=== PATIENT | female | born 1980 | race Caucasian/White ===

== ENCOUNTER 2024-07-17 18:43 | Emergency (ER) | payer SELFPAY ==
[2024-07-17 18:43] VITALS: BP 201/106; PULSE 96; RESP 17; TEMP 36.1; O2SAT 98; BMI 41.8
[2024-07-17 19:00] LABS: Absolute Lymphocyte Count 2.82 X10^3/uL (0.83-4.51); Absolute Neutrophil Count 5.7 X10^3/uL (2.0-7.7); Basophil# 0.04 X10^3/uL; Basophil% 0.4 % (0-1); Eosinophil# 0.14 X10^3/uL; Eosinophils% 1.5 % (0-5); Hematocrit 45.5 % (37-47); Hemoglobin 15.2 g/dL (12.0-15.0); Lymphocyte # 2.82 X10^3/ul (0.83-4.51); Lymphocyte % 29.7 % (19-41); Mean Corp Hgb Conc 33.4 g/dL (32-36); Mean Corpuscular Hgb 30.5 pg (27.0-32.0); Mean Corpuscular Volume 91.2 fL (81-99); Monocyte# 0.73 X10^3/uL; Monocyte% 7.7 % (0-10); NRBC Flagged by Analyzer 0 % (0-5); Neutrophil # 5.73 X10^3/uL (2.7-7.7); Neutrophil % 60.4 % (47-70); Platelet Count 260 K/mm3 (150-450); RBC Distribution Width CV 11.9 % (11.6-14.6); RBC Distribution Width SD 39.2 fl (35.1-43.9); Red Blood Count 4.99 M/mm3 (4.2-5.4); White Blood Count 9.5 K/mm3 (4.4-11.0)
[2024-07-17 19:23] LABS: ALB/GLOB Ratio 0.9 RATIO (0.9-2.4); AST(SGOT) 11 U/L (15-37); Alanine Aminotransfer ALT/SGPT 22 U/L (13-56); Albumin, Serum 3.7 g/dL (3.2-5.0); Alkaline Phosphatase 79 U/L (45-117); Anion Gap 7 (5-15); BUN 14 mg/dL (7-18); BUN/Creat Ratio 21.5 RATIO (10-20); Calcium,Total 9.7 mg/dL (8.5-10.1); Chloride 106 mmol/L (98-107); Creatinine, Serum 0.65 mg/dL (0.55-1.02); EST Glomerular Filtration Rate 106 mL/min (>60); Est Glom Filt Rate - Afr Amer 128 mL/min (>60); Globulin 4.3 g/dL (2.2-4.2); Glucose 94 mg/dL (74-106); Potassium 3.9 mmol/L (3.5-5.1); Sodium Level 138 mmol/L (136-145)
[2024-07-17 19:26] LABS: Mucous, Urine 0 SEEN /hpf (<or=2+); Red Blood Cells-Urine 0 SEEN /hpf (0-5); Squamous Epithelial Cells - UA 0 SEEN /hpf (5-10); White Blood Cells 0 SEEN /hpf (0-5)
[2024-07-17 19:32] LABS: Color, Urine Straw (Yellow); Glucose, Dipstick Normal (Normal); Ketone-Dipstick Negative (Negative); Leukocyte Esterase-Dipstick Negative /ul (Negative); Nitrite-Dipstick Negative (Negative); Occult Blood-Urine 25 /ul (Negative); Protein-Dipstick Negative (Negative); Specific Gravity, Urine 1.005 (1.002-1.030); Urine Bilirubin Dipstick Negative (Negative); Urine Clarity Clear (Clear); Urine Urobilinogen Normal (Normal)
[2024-07-17 19:44] LABS: Bacteria RARE /hpf (None Seen)
[2024-07-17 20:43] VITALS: BP 149/90; PULSE 86; RESP 16; O2SAT 98
--- NOTE | 2024-07-17 21:19 | CT_ITS ---
INDICATION: FLANK PAIN EXAMINATION: CT ABDOMEN AND PELVIS WITHOUT CONTRAST - CT Abdomen And Pelvis W/O Contrast Injection TECHNIQUE: Helically acquired images were obtained of the abdomen and pelvis without oral or IV contrast. The protocol utilizes one or more of the following dose reduction techniques: automated exposure control, adjustment of mA and/or kV according to patient size,and/or use of iterative reconstruction technique. IV Contrast dosage and agent: None. Oral contrast: None. RADIATION DOSAGE (If Supplied By Facility): CTDIvol = ( 20.43 ) mGy, DLP = ( 1077.22 ) mGycm COMPARISON: No relevant prior comparison study available FINDINGS: LOWER CHEST: Lung bases are clear. No cardiomegaly or pericardial effusion. LIVER: Homogeneous. No focal mass. No intra- or extrahepatic biliary ductal dilation. PANCREAS: No focal cystic or solid mass. SPLEEN: Normal size without focal cystic or solid mass. ADRENAL GLANDS: No nodules. KIDNEYS AND URETERS: Bilateral nonobstructive kidney stones. The largest measures 8 mm. No hydronephrosis. PERITONEUM: No ascites or free air. No other fluid collection. BOWEL: No evidence of acute appendicitis. No stomach or bowel distension. No focal inflammatory change. LYMPH NODES: No enlarged mesenteric or retroperitoneal lymph nodes. VESSELS: Aorta is non-dilated. URINARY BLADDER: Unremarkable. REPRODUCTIVE ORGANS: No pelvic masses. ABDOMINAL WALL: No discrete abdominal or pelvic wall hernia. BONES: No lytic or blastic abnormality. CT/Abdomen/Pelvis without Cont IMPRESSION: Bilateral nonobstructive kidney stones. The largest measures 8 mm. Electronically Signed: Eber Mcmahon MD at 23:27 EDT ,
[2024-07-17] MEDS: Ondansetron 4 MG/2 ML Vial IV (21:31)
[2024-07-17] MEDS: Ketorolac 30 MG/ML Syringe IV (21:31)
[2024-07-17 22:00] VITALS: BP 128/88; PULSE 86; RESP 18; O2SAT 96
--- NOTE | 2024-07-17 23:44 | EX.ED.DYSGE1 ---
HPI History of Present Illness Chief Complaint: Flank Pain Narrative Narrative: Patient is a 44-year-old female with past medical history of hypertension, previous kidney stones who presents to the emergency department the chief complaint of kidney stone. Patient states that for the past few days she has noted that she feels like she has a kidney stone on the right side. States that she has had them in the past and has had to have them woken up. Patient currently rates her pain a 7 out of 10 on exam. She states that she tried to drink multiple bottles of water and making herself urinate prior to arrival in hopes that kidney stone will pass on its own. Patient denies any fevers, painful urination, increased frequency of urinating. [facility] Medical History Kidney stones Hemorrhoids HTN (hypertension) Home Medications ?Medication ?Instructions ?Recorded ?Last Taken ?Type ketorolac 10 mg tablet 10 mg PO Q6H PRN pain 5 days #20 07/17/24 Unknown Rx tabs medroxyprogesterone 150 mg/mL 600 mg IM .[id number] control 07/17/24 Unknown History intramuscular suspension (Depo-Provera) melatonin 10 mg capsule 10 mg PO QHS PRN sleep 07/17/24 Unknown History ondansetron 4 mg disintegrating 4 mg PO Q6H PRN nausea and 07/17/24 Unknown Rx tablet vomiting #20 tabs oxycodone-acetaminophen 5 mg-325 1 tab PO Q6H PRN pain 3 days #12 07/17/24 Unknown Rx mg tablet (Endocet) tabs tamsulosin 0.4 mg capsule (Flomax) 0.4 mg PO DAILY #30 caps 07/17/24 Unknown Rx Allergy/AdvReac Type Severity Reaction Status Date / Time No Known Allergies Allergy Verified 07/17/24 18:43 Surgical History H/O tubal ligation Hx of cholecystectomy Social History Smoking Status: Current every day smoker tobacco type: cigarettes alcohol intake: never ROS ROS ED ROS Narrative Constitutional: Denies any fevers, chills, headaches Cardiovascular: Denies chest pain or palpitations Respiratory: Denies coughing wheezing shortness of breath Abdomen: Denies abdominal pain nausea vomit diarrhea : Denies any painful urination, hematuria, polyuria Neurological: Denies numbness, weakness, tingling Musculoskeletal: Complains of right-sided back pain as noted above Skin: Denies rashes or lesions EXAM Physical Exam Narrative Exam Narrative: General: Patient was lying in bed did appear to be uncomfortable secondary to her back pain Head: Atraumatic, normocephalic Eyes: PERRL bilaterally, EOMI bilateral, no conjunctival injection noted Neck: Soft, supple, trach midline Cardiovascular: Regular rate and rhythm no murmurs gallops rubs noted Respiratory: Clear to auscultation bilaterally no rales rhonchi wheeze noted Abdomen: Soft, nondistended, nontender to palpation, bowel sounds present x 4 Musculoskeletal: Patient is some tenderness palpation of the right quadratus lumborum region, no midline tense palpation thoracolumbar spine Extremities: +5/5 strength noted in the bilateral upper and lower extremities, no pedal edema no exam, radial pulses +2/4 in the bilateral upper extremities Neurological: Patient was following commands knew that she was at [facility] year is 2023 Skin: Warm, dry, intact no rashes or lesions noted Const Vital Signs: 07/17/24 18:43 07/17/24 20:43 07/17/24 22:00 Temperature 97 F L Temperature Source Temporal Pulse Rate 96 86 86 Respiratory Rate 17 16 18 Blood Pressure 201/106 H 149/90 H 128/88 H Blood Pressure Mean 137 109 101 Pulse Ox 98 98 96 Oxygen Delivery Method Room Air Room Air Room Air MDM [facility] Narrative Medical decision making narrative: Patient is a 44-year-old female who presented to the emergency department the chief complaint of urolithiasis. Patient will have workup performed here on the differential diagnose includes but not limited to UTI, pyelonephritis, urolithiasis, AAA. Once workup is obtained reviewed she will be reevaluated. Patient will be given IV fluids, Toradol. Patient's CBC was reviewed showed no evidence of leukocytosis white blood count normal 9.5, hemoglobin stable 15.2, platelet count normal at 260. Patient sodium normal at 138, potassium normal 3.9, creatinine normal at 0.65. Patient's AST and ALT were 11 and 22 respectively . Patient's urinalysis did not reveal any evidence of infection there was small amount of blood noted. Patient CT abdomen pelvis without IV contrast was reviewed and showed bilateral nonobstructing kidney stones the largest measuring 8 mm. I did discuss results with the patient and the patient would like to go home at this point time I did offer her admission/transfer as there is no on-call urology here today as the stone is noted be 8 mm. She is requesting pain medication to go home with and urology follow-up. She was encouraged return with fevers, intractable nausea vomiting worsening pain or any other concerns. Her and her significant other are agreeable to this plan. Patient was discharged home in stable condition with all question concerns answered. Lab Data Labs: Laboratory Results - last 24 hr 07/17/24 07/17/24 18:50 19:21 WBC 9.5 RBC 4.99 Hgb 15.2 H Hct 45.5 MCV 91.2 MCH 30.5 MCHC 33.4 RDW Std Deviation 39.2 RDW Coeff of Alanna 11.9 Plt Count 260 MPV 10.0 Immature Gran % (Auto) 0.300 Neut % (Auto) 60.4 Lymph % (Auto) 29.7 Graham % (Auto) 7.7 Eos % (Auto) 1.5 Baso % (Auto) 0.4 Absolute Neuts (auto) 5.7 Absolute Lymphs (auto) 2.82 Nucleated RBC % 0 Sodium 138 Potassium 3.9 Chloride 106 Carbon Dioxide 25.0 Anion Gap 7 BUN 14 Creatinine 0.65 Estim Creat Clear Calc 122.60 Est GFR (MDRD) Af Amer 128 Est GFR (MDRD) Non-Af 106 BUN/Creatinine Ratio 21.5 H Glucose 94 Calcium 9.7 Total Bilirubin 0.20 AST 11 L ALT 22 Alkaline Phosphatase 79 Total Protein 8.0 Albumin 3.7 Globulin 4.3 H Albumin/Globulin Ratio 0.9 Urine Color Straw Urine Clarity Clear Urine pH 7.0 Ur Specific Petroleum 1.005 Urine Protein Negative Urine Glucose (UA) Normal Urine Ketones Negative Urine Occult Blood 25 H Urine Nitrite Negative Urine Bilirubin Negative Urine Urobilinogen Normal Ur Leukocyte Esterase Negative Urine RBC 0 SEEN Urine WBC 0 SEEN Ur Squamous Epith Cells 0 SEEN Urine Bacteria RARE Urine Mucus 0 SEEN Radiography Diagnostic Testing: Clinical Impression(s) from Imaging Studies Abdomen/Pelvis CT 07/17/24 21:19 IMPRESSION: Bilateral nonobstructive kidney stones. The largest measures 8 mm. Electronically Signed: Eber Mcmahon MD at 23:27 EDT , Discharge Plan Triage Chief Complaint: Flank Pain ED Provider: Christo Pulido Dx/Rx/DC Orders Clinical Impression: Urolithiasis Prescriptions: New ketorolac 10 mg tablet 10 mg PO Q6H PRN (Reason: pain) 5 Days Qty: 20 0RF Rx Instructions: maximum total duration of 5 days from all oral, intranasal, or parenteral formulations ondansetron 4 mg tablet,disintegrating 4 mg PO Q6H PRN (Reason: nausea and vomiting) Qty: 20 0RF oxycodone-acetaminophen [Endocet] 5-325 mg tablet 1 tab PO Q6H PRN (Reason: pain) 3 Days Qty: 12 0RF tamsulosin [Flomax] 0.4 mg capsule 0.4 mg PO DAILY Qty: 30 0RF No Action melatonin 10 mg capsule 10 mg PO QHS PRN (Reason: sleep) Patient Comments: pt reports taking 10-20mg per night medroxyprogesterone [Depo-Provera] 150 mg/mL suspension 600 mg IM .[id number] Patient Comments: unsure of dosage Primary Care Provider: Connie Madrid Referrals: Connie Madrid, ZIPPER TRIMMER-C [Primary Care Provider] - Christopher Mrar MD [Med Staff - Active Staff] - Activity Restrictions/Additional Instructions: Follow-up with your urologist that you are referred to. Return for fevers, worsening pain, intractable nausea vomiting not tolerating oral intake or any other concerns. Take prescriptions as prescribed do not use NSAIDs on top with Toradol/ketorolac that you were prescribed. Do not operate anything under the influence of the narcotic. Print Language: Solomon Islander Disposition Disposition: Home, Self Care
== END 2024-07-17 23:57 | disposition home or self-care (01) ==
PROVIDERS: Emergency Provider Emergency Medicine; PCP Nurse Practitioner Family; Visit Provider Emergency Medicine
DX: N20.9 Urinary calculus, unspecified (principal); I10 Essential (primary) hypertension; Z98.51 Tubal ligation status; Z90.49 Acquired absence of other specified parts of digestive tract; F17.210 Nicotine dependence, cigarettes, uncomplicated
CPT/HCPCS: 74176; 80053; 81001; 85025; 96374; 96375; 99282; A4216; J2405

== ENCOUNTER 2024-07-20 09:06 | Emergency (ER) | payer SELFPAY ==
[2024-07-20 09:07] VITALS: BP 161/97; PULSE 105; RESP 22; TEMP 36.1; O2SAT 100; BMI 41.4
[2024-07-20] MEDS: Ketorolac 15 MG/ML Vial IV (09:31)
[2024-07-20] MEDS: Ondansetron 4 MG/2 ML Vial IV (09:31)
[2024-07-20] MEDS: 0.9% Normal Saline (1000mL) 1,000 ML 250 ML IV (09:33)
[2024-07-20] MEDS: HYDROmorphone 0.5 MG/0.5 ML SYRINGE IV (09:33)
[2024-07-20 09:39] LABS: Absolute Neutrophil Count 6.7 X10^3/uL (2.0-7.7); Basophil# 0.02 X10^3/uL; Basophil% 0.2 % (0-1); Eosinophil# 0.04 X10^3/uL; Eosinophils% 0.4 % (0-5); Hematocrit 45.7 % (37-47); Hemoglobin 15.3 g/dL (12.0-15.0); Lymphocyte % 17.9 % (19-41); Mean Corp Hgb Conc 33.5 g/dL (32-36); Mean Corpuscular Hgb 30.4 pg (27.0-32.0); Mean Corpuscular Volume 90.9 fL (81-99); Mean Platelet Vol. 10.3 fl (6.2-12.0); Monocyte% 5.6 % (0-10); NRBC Flagged by Analyzer 0 % (0-5); Neutrophil # 6.74 X10^3/uL (2.7-7.7); Neutrophil % 75.5 % (47-70); Platelet Count 279 K/mm3 (150-450); RBC Distribution Width CV 11.9 % (11.6-14.6); RBC Distribution Width SD 39.6 fl (35.1-43.9); Red Blood Count 5.03 M/mm3 (4.2-5.4); White Blood Count 8.9 K/mm3 (4.4-11.0)
--- NOTE | 2024-07-20 09:40 | RAD_ITS ---
STUDY: X-RAY - ABDOMEN/PELVIS REASON FOR EXAM: Female, 44 years old. Right flank pain, known kidney stone TECHNIQUE: Single AP view of the abdomen / pelvis. COMPARISON: None. FINDINGS: There is a moderate amount of colonic fecal material. There is a 6.5 mm calcification in the medial right midabdomen adjacent to the transverse process of the L3 vertebrae on the right side suggestive of a calculus in the proximal portion of the right ureter. There are calcified phleboliths in the pelvis. Normal visualized osseous structures. RAD/Abdomen Single View IMPRESSION: Findings suggestive of a 6.5 mm calculus in the proximal portion of the right ureter. Electronically Signed: Moose Tyson MD at 9:55 EDT ,
[2024-07-20 09:49] LABS: Anion Gap 5 (5-15); BUN 9 mg/dL (7-18); BUN/Creat Ratio 12.3 RATIO (10-20); Calcium,Total 9.3 mg/dL (8.5-10.1); Chloride 105 mmol/L (98-107); Creatinine, Serum 0.73 mg/dL (0.55-1.02); EST Glomerular Filtration Rate 93 mL/min (>60); Est Glom Filt Rate - Afr Amer 112 mL/min (>60); Estimated Creatinine Clearance 108.57 ml/min; Glucose 96 mg/dL (74-106); Sodium Level 135 mmol/L (136-145)
[2024-07-20 10:06] VITALS: BP 151/84; PULSE 99; RESP 18; O2SAT 99
[2024-07-20] MEDS: HYDROmorphone 1 MG/ML Syringe 0.5 MG IV (10:06)
[2024-07-20 10:12] LABS: Bacteria 0 SEEN /hpf (None Seen); Mucous, Urine 0 SEEN /hpf (<or=2+); Squamous Epithelial Cells - UA 0 SEEN /hpf (5-10); White Blood Cells 0 SEEN /hpf (0-5)
--- NOTE | 2024-07-20 10:24 | EX.ED.DYSGE1 ---
HPI History of Present Illness Chief Complaint: Flank Pain Informant: patient Narrative Narrative: Patient is a 44-year-old female with history of multiple kidney stones requiring instrumentation and stenting presenting with worsening right flank pain. Patient was actually seen in our ER earlier this week (3 days ago) where she was diagnosed with bilateral nonobstructive kidney stones the largest measuring 8 mm. There is no hydronephrosis at this time. She states she was doing well but then suddenly developed severe pain today. She took oral Toradol at 4 AM and half of an oxycodone at 11 PM last night was not feeling that her pain under control. She also voices frustration and concern as she does not currently have insurance. Notes that she has passed stones on her own before as well. No other complaints or concerns at this time. Denies any fever or chills. Denies any change in urine color. As some nauseousness with the pain but denies any vomiting. Most recent stent was 2 years ago at [facility]. [facility] Medical History Kidney stones Hemorrhoids HTN (hypertension) Home Medications ?Medication ?Instructions ?Recorded ?Last Taken ?Type ketorolac 10 mg tablet 10 mg PO Q6H PRN pain 5 days #20 07/17/24 Unknown Rx tabs medroxyprogesterone 150 mg/mL 600 mg IM .[id number] control 07/17/24 Unknown History intramuscular suspension (Depo-Provera) melatonin 10 mg capsule 10 mg PO QHS PRN sleep 07/17/24 Unknown History ondansetron 4 mg disintegrating 4 mg PO Q6H PRN nausea and 07/17/24 Unknown Rx tablet vomiting #20 tabs oxycodone-acetaminophen 5 mg-325 1 tab PO Q6H PRN pain 3 days #12 07/17/24 Unknown Rx mg tablet (Endocet) tabs tamsulosin 0.4 mg capsule (Flomax) 0.4 mg PO DAILY #30 caps 07/17/24 Unknown Rx oxycodone 5 mg tablet 5 mg PO Q6H PRN pain 3 days #12 07/20/24 Unknown Rx tabs Allergy/AdvReac Type Severity Reaction Status Date / Time No Known Allergies Allergy Verified 07/20/24 09:06 Surgical History H/O tubal ligation Hx of cholecystectomy Social History Smoking Status: Current every day smoker tobacco type: cigarettes alcohol intake: never ROS ROS ED Constitutional Constitutional ED: Denies chills or fever(s) Cardiovascular Cardiovascular: Denies chest pain Respiratory/Chest Respiratory/Chest: Denies cough Gastrointestinal Gastrointestinal: Reports abdominal pain and nausea; Denies diarrhea or vomiting Musculoskeletal Musculoskeletal: Reports back pain; Denies arthralgias Integumentary Denies rash Neurologic Neurologic: Denies headache(s) or paresthesias Psychiatric Psychiatric: Denies anxiety EXAM Physical Exam Const Vital Signs: 07/20/24 09:07 07/20/24 10:06 07/20/24 11:00 Temperature 96.9 F L Temperature Source Temporal Pulse Rate 105 H 99 84 Respiratory Rate 22 H 18 18 Blood Pressure 161/97 H 151/84 H 146/99 H Blood Pressure Mean 118 106 114 Pulse Ox 100 99 98 Oxygen Delivery Method Room Air Room Air Room Air 07/20/24 12:00 07/20/24 13:00 Temperature Temperature Source Pulse Rate 84 91 Respiratory Rate 18 18 Blood Pressure 132/74 H 133/74 H Blood Pressure Mean 93 93 Pulse Ox 98 98 Oxygen Delivery Method Room Air Positive well nourished and well developed Constitutional Narrative: Uncomfortable appearing, pacing around the room General Appearance ED: well developed HEENT Reports moist mucous membranes Neck supple Chest Wall inspection of chest normal Resp normal respiratory effort and clear to auscultation bilaterally Cardio regular rate and regular rhythm GI non-distended Back/Spine Back/Spine Narrative: Points to her right flank as her area of pain, normal range of motion of the back Extremity normal to inspection General Extremety ED: Negative for edema General Extremity: Negative for edema Neuro oriented x3 Sensorium / Orientation: alert Motor Exam: Negative for general weakness Psych mental status grossly normal Skin no rashes or lesions noted MDM MDM MDM Narrative Medical decision making narrative: Patient evaluated for acute worsening of right flank pain. Has significant known kidney stones. Was seen and evaluated 3 days ago in our ER for similar presentation. At that time was found to have an 8 mm intrarenal stone with no hydronephrosis. Patient does voice concern about cost since she does not have insurance. Will recheck labs, address pain and also start with a KUB for further evaluation see if she is not actively passing a stone. Patient requires 2 doses of IV Dilaudid for adequate pain control. She is also given IV Toradol and fluids. She is given a bolus of IV fluids. Differential includes but limited to obstructing kidney stone, pyelonephritis, septic stone or muscle skeletal back pain. CBC and CMP largely normal. Kidney function is normal with a creatinine of 0.73. Urinalysis is not consistent with infection but does show 0-5 red blood cells which is consistent with a passing kidney stone. KUB shows a 6.5 mm calculus at the proximal portion of the right ureter which again is consistent with a known 8 mm stone and with her presentation. On repeat evaluation patient has adequate pain control is now resting comfortably. She would like to try to continue outpatient treatment. Patient be given a refill of oxycodone for further pain control, counseled to stay up on her NSAID therapy (states she is only when taking it once a day) and also given outpatient urology follow-up. She verbalized agreement to this plan. Discharged home in stable and improved condition. Encouraged to return to the emergency room with her symptoms persist. Counseled that with the size of the stone (6.5 to 8 mm) it might not pass spontaneously. Lab Data Attestation: I reviewed the patient's lab results. Labs: Laboratory Results - last 24 hr 07/20/24 07/20/24 09:19 09:55 WBC 8.9 RBC 5.03 Hgb 15.3 H Hct 45.7 MCV 90.9 MCH 30.4 MCHC 33.5 RDW Std Deviation 39.6 RDW Coeff of Alanna 11.9 Plt Count 279 MPV 10.3 Immature Gran % (Auto) 0.400 Neut % (Auto) 75.5 H Lymph % (Auto) 17.9 L Ripley % (Auto) 5.6 Eos % (Auto) 0.4 Baso % (Auto) 0.2 Absolute Neuts (auto) 6.7 Absolute Lymphs (auto) 1.60 Nucleated RBC % 0 Sodium 135 L Potassium 4.0 Chloride 105 Carbon Dioxide 25.0 Anion Gap 5 BUN 9 Creatinine 0.73 Estim Creat Clear Calc 108.57 Est GFR (MDRD) Af Amer 112 Est GFR (MDRD) Non-Af 93 BUN/Creatinine Ratio 12.3 Glucose 96 Calcium 9.3 Urine Color Yellow Urine Clarity Clear Urine pH 6.5 Ur Specific Douglas 1.005 Urine Protein Negative Urine Glucose (UA) Normal Urine Ketones Negative Urine Occult Blood 150 H Urine Nitrite Negative Urine Bilirubin Negative Urine Urobilinogen Normal Ur Leukocyte Esterase Negative Urine RBC 0-5 SEEN Urine WBC 0 SEEN Ur Squamous Epith Cells 0 SEEN Urine Bacteria 0 SEEN Urine Mucus 0 SEEN Radiography Diagnostic Testing: Clinical Impression(s) from Imaging Studies KUB X-Ray 07/20/24 09:40 IMPRESSION: Findings suggestive of a 6.5 mm calculus in the proximal portion of the right ureter. Electronically Signed: Moose Tyson MD at 9:55 EDT , Discharge Plan Triage Chief Complaint: Flank Pain ED Provider: Falguni Lwe Dx/Rx/DC Orders Clinical Impression: Urolithiasis, Acute right flank pain Instructions: ED Kidney Stone with Pain Prescriptions: New oxycodone 5 mg tablet 5 mg PO Q6H PRN (Reason: pain) 3 Days Qty: 12 0RF No Action melatonin 10 mg capsule 10 mg PO QHS PRN (Reason: sleep) Patient Comments: pt reports taking 10-20mg per night medroxyprogesterone [Depo-Provera] 150 mg/mL suspension 600 mg IM .[id number] Patient Comments: unsure of dosage ketorolac 10 mg tablet 10 mg PO Q6H PRN (Reason: pain) 5 Days Qty: 20 0RF Rx Instructions: maximum total duration of 5 days from all oral, intranasal, or parenteral formulations ondansetron 4 mg tablet,disintegrating 4 mg PO Q6H PRN (Reason: nausea and vomiting) Qty: 20 0RF oxycodone-acetaminophen [Endocet] 5-325 mg tablet 1 tab PO Q6H PRN (Reason: pain) 3 Days Qty: 12 0RF tamsulosin [Flomax] 0.4 mg capsule 0.4 mg PO DAILY Qty: 30 0RF Primary Care Provider: Connie Madrid Referrals: Yamilet Beach MD [Med Staff - Active Staff] - 1 Week if not improving Ungerer,Connie, JAVA J[employer]EE APPLICATION DEVELOPER-C [Primary Care Provider] - Activity Restrictions/Additional Instructions: Please continue to take the Toradol and Flomax as we discussed. You been given another prescription for pain medication (oxycodone). Continue to drink lots of fluids. It is possible this kidney stone will not pass on its own and you might require intervention. Please return to the emergency room if you cannot tolerate the pain or follow-up with urology. Print Language: Kiswahili Disposition Disposition: Home, Self Care
[2024-07-20 10:26] LABS: Color, Urine Yellow (Yellow); Glucose, Dipstick Normal (Normal); Ketone-Dipstick Negative (Negative); Leukocyte Esterase-Dipstick Negative /ul (Negative); Nitrite-Dipstick Negative (Negative); Occult Blood-Urine 150 /ul (Negative); Protein-Dipstick Negative (Negative); Specific Gravity, Urine 1.005 (1.002-1.030); Urine Bilirubin Dipstick Negative (Negative); Urine Clarity Clear (Clear); Urine Urobilinogen Normal (Normal); Urine pH 6.5 (5.0 - 8.0)
[2024-07-20 10:36] LABS: Red Blood Cells-Urine 0-5 SEEN /hpf (0-5)
[2024-07-20 11:00] VITALS: BP 146/99; PULSE 84; RESP 18; O2SAT 98
[2024-07-20 12:00] VITALS: BP 132/74; PULSE 84; RESP 18; O2SAT 98
[2024-07-20 13:00] VITALS: BP 133/74; PULSE 91; RESP 18; O2SAT 98
[2024-07-20 13:42] VITALS: BP 133/74; PULSE 91; RESP 18; TEMP 36.7; O2SAT 98
== END 2024-07-20 13:45 | disposition home or self-care (01) ==
PROVIDERS: Emergency Provider Emergency Medicine; PCP Nurse Practitioner Family; Visit Provider Emergency Medicine
DX: N20.1 Calculus of ureter (principal); I10 Essential (primary) hypertension; Z90.49 Acquired absence of other specified parts of digestive tract; Z98.51 Tubal ligation status; F17.210 Nicotine dependence, cigarettes, uncomplicated
CPT/HCPCS: 74018; 80048; 81001; 85025; 96374; 96375; 96376; 99283; J7030; A4216; J2405

== ENCOUNTER 2025-05-22 22:40 | Emergency (ER) | payer BC, SELFPAY ==
[2025-05-22] VITALS (7 sets, daily range): BP systolic 135–163; BP diastolic 74–113; PULSE 88–105; RESP 16–22; TEMP 36.2; O2SAT 100; BMI 39.4
[2025-05-22 23:13] LABS: Hematocrit 45.6 % (37-47); Hemoglobin 16.0 g/dL (12.0-15.0); Immature Granulocytes Count 0.030 X10^3/uL (0.0-0.0); Mean Corp Hgb Conc 35.1 g/dL (32-36); Mean Corpuscular Volume 90.5 fL (81-99); Mean Platelet Vol. 9.9 fl (6.2-12.0); NRBC Flagged by Analyzer 0 % (0-5); Platelet Count 229 K/mm3 (150-450); RBC Distribution Width CV 11.8 % (11.6-14.6); RBC Distribution Width SD 38.9 fl (35.1-43.9); Red Blood Count 5.04 M/mm3 (4.2-5.4); White Blood Count 10.1 K/mm3 (4.4-11.0)
[2025-05-22 23:36] LABS: D-Dimer Quantitative (DVT/PE) 0.51 FEU/ug/m (0.27-0.49)
[2025-05-22 23:50] LABS: Anion Gap 14 (5-15); BUN 14 mg/dL (4-19); BUN/Creat Ratio 25.0 RATIO (10-20); Calcium,Total 9.1 mg/dL (7.6-11.0); Carbon Dioxide 17.1 mmol/L (21.0-32.0); Chloride 105 mmol/L (98-108); Estimated Creatinine Clearance 138.90 ml/min (50-250); Glucose 90 mg/dL (70-99); Internal QC Validated? YES +Cl - CLEAR BKGD; Potassium 4.1 mmol/L (3.3-5.1); Pregnancy, Serum, hCG Quali. NEGATIVE Negative; Pro- Brain NATRIURETIC PEPTIDE 185 pg/mL (<=450); Record Kit Lot#, Serum Preg. 0000947241; Troponin T High Sensitivity < 6 ng/L (<=14)
[2025-05-22] MEDS: 0.9% Normal Saline (1000mL) 1,000 ML 1000 ML IV (23:50)
[2025-05-23] VITALS (9 sets, daily range): BP systolic 125–142; BP diastolic 74–86; PULSE 87–101; RESP 16–26; TEMP 36.8; O2SAT 96–100
[2025-05-23 01:28] LABS: Troponin T High Sens 2 HR < 6 ng/L (<=14)
== END 2025-05-23 02:13 | disposition home or self-care (01) ==
PROVIDERS: Emergency Provider Surgery; PCP Nurse Practitioner Family; Visit Provider Surgery
DX: R07.9 Chest pain, unspecified (principal); I10 Essential (primary) hypertension; E05.00 Thyrotoxicosis with diffuse goiter without thyrotoxic crisis or storm; I25.2 Old myocardial infarction; F17.210 Nicotine dependence, cigarettes, uncomplicated; Z98.51 Tubal ligation status; Z90.49 Acquired absence of other specified parts of digestive tract
CPT/HCPCS: 71046; 71275; 80048; 83880; 84439; 84443; 84484; 84703; 85025; 85379; 93005; 96360; 99283; Q9967; A4216

== ENCOUNTER → 2025-06-10 | Outpatient (CLI) | payer BC, SELFPAY ==
[2025-06-10 13:15] LABS: Free T3 3.7 pg/mL (2.18-3.98)
== END | disposition home or self-care (01) ==
LOC: BIMLAB 09:38
PROVIDERS: PCP Nurse Practitioner Family; Referring Provider Nurse Practitioner Family; Visit Provider Nurse Practitioner Family
DX: E04.1 Nontoxic single thyroid nodule (principal)
CPT/HCPCS: 36415; 84439; 84443; 84481

== ENCOUNTER → 2025-09-19 | Outpatient (CLI) | payer BC, SELFPAY ==
[2025-09-19 11:43] LABS: Free T3 4.3 pg/mL (2.18-3.98)
== END | disposition home or self-care (01) ==
LOC: LAB 10:09
PROVIDERS: PCP Nurse Practitioner Family; Referring Provider Internal Medicine Endocrinology, Diabetes & Metabolism; Visit Provider Internal Medicine Endocrinology, Diabetes & Metabolism
DX: E05.20 Thyrotoxicosis with toxic multinodular goiter without thyrotoxic crisis or storm (principal)
CPT/HCPCS: 36415; 84439; 84443; 84481; 86376

== ENCOUNTER → 2025-09-25 | Outpatient (CLI) | payer BC, SELFPAY ==
--- NOTE | 2025-09-25 17:39 | US_ITS ---
PROCEDURE: THYROID 09/25/2025 REASON FOR EXAM: Thyroid nodules. TECHNIQUE: Procedure Code: USTHY Modality: US Procedure: THYROID COMPARISON: Prior CT scan dated May 23, 2025. FINDINGS: Right thyroid lobe size: 7.7 cm 4.4 cm x 3.8 cm Left thyroid lobe size: 7.4 cm x 2.4 cm 3.2 cm Isthmus: 1 cm Background parenchymal echotexture is heterogeneous Nodules: . Lobe: Right, Location: Midpole, Size: 4.5 cm 3.8 cm 3 cm, Stability: N/A Composition: Mixed cystic and solid (+1) Echogenicity: Hypoechoic (+2) Margin: Smooth (+0) Shape: Wider than tall (+0) Echogenic Foci: None (+0) TI-RADS: 3 . Lobe: Left, Location: Mid, Size: 1.8 cm 1.7 cm 1.1 cm, Stability: N/A Composition: Solid or almost completely solid (+2) Echogenicity: Hypoechoic (+2) Margin: Smooth (+0) Shape: Wider than tall (+0) Echogenic Foci: None (+0) TI-RADS: 4 1.6 cm x 0.9 cm x 0.9 cm cystic/solid nodule in the inferior pole of the left lobe of the thyroid. TI-RADS category 3 1.1 cm 1.2 cm x 0.8 cm hypoechoic solid nodule in the midpole of the left lobe. TI-RADS category 3. US/Thyroid IMPRESSION: Dominant nodule in the right lobe of the thyroid. Multiple nodules in the left lobe. Tissue sampling of the dominant nodule in the right lobe as well as in the left lobe recommended for further evaluation. RECOMMENDATION: Based on most suspicious nodule. Nodule size = largest diameter Only evaluate nodule if =>5 mm. Growth > 20% in 2 dimensions = worsening. Follow up to 4 nodules. Recommend biopsy for no more than 2 nodules. Reading Location: [id number]
== END | disposition home or self-care (01) ==
LOC: US 17:31
PROVIDERS: PCP Nurse Practitioner Family; Referring Provider Internal Medicine Endocrinology, Diabetes & Metabolism; Visit Provider Internal Medicine Endocrinology, Diabetes & Metabolism
DX: E04.2 Nontoxic multinodular goiter (principal)
CPT/HCPCS: 76536

== ENCOUNTER → 2025-10-11 | Outpatient (CLI) | payer BC, SELFPAY ==
--- NOTE | 2025-10-11 09:00 | CYSPIN_PTH ---
PATIENT: NARENDRA JAMISON LOC: [facility] U#:[id number] AGE/SX: 45/F ROOM: RE10/11/[address]: Dr. Cayetano Cote MD : 1980 BED: DIS: 10/11/2025 SPEC #: [id number] RECD: 10/11/25 10:51 STATUS: HARITHA REQ #: [id number] ROGER: 10/11/25 09:[address]: Cayetano Cote DEPT: CYTOLOGY RECD BY: Babak Lewis ENTERED: 10/11/25 11:46 SP TYPE: CYSPIN FL OTHR DR: Connie Madrid, ENTERPRISE ENGINEER-C Tissues: A - Thyroid gland, NOS B - Thyroid gland, NOS C - Thyroid gland, NOS Procedures: Pap Stain (control) Special Stain Group II Diff Quik Stain (control) Cytospin Fluid Cytology Other HEADER OPERATION: Fine needle aspiration of bilateral thyroid nodules PRE-OP DIAGNOSIS: Bilateral thyroid nodules TISSUE SUBMITTED: A- Left mid thyroid, B- Right mid thyroid, C- Right thyroid fluid DIAGNOSIS CYTOLOGY A. Left mid thyroid, FNA (cytospin, smear x4): - Atypical cells of undetermined significance (TBS III). - Afirma testing will be submitted (a separate report will follow). B. Right mid thyroid, FNA (cytospin, smear x4): - Atypical cells of undetermined significance (TBS III). - Afirma testing will be submitted (a separate report will follow). C. Right thyroid, FNA (cytospin): - Nondiagnostic. - Essentially acellular specimen. CYTOLOGY STUDY Slides are reviewed. CYTOLOGY GROSS A. Received is 30 ml of pale-red cytolyt with particles and 4 slides labeled with the patient's name and and designated per the requisition as Left mid thyroid. Submitted for cytology and cytospin. B. Received is 30 ml of red cytolyt with particles and 4 slides labeled with the patient's name and and designated per the requisition as Right mid thyroid. Submitted for cytology and cytospin. C. Received is 12 ml of red fluid labeled with the patient's name and and designated per the requisition as Right thyroid fluid. Submitted for cytology and cell block preparation. 10/11/2025 CPT: 34361,67216l0 ADDENDUM ADDENDUM ADDENDUM ADDENDUM ADDENDUM ADDENDUM ADDENDUM ADDENDUM ADDENDUM ADDENDUM ADDENDUM ADDENDUM ADDENDUM ADDENDUM ADDENDUM ADDENDUM ADDENDUM ADDENDUM 10/28/2025 10:58 ADDENDUM 10/28/2025 10:58 ADDENDUM 10/28/2025 10:58 ADDENDUM 10/28/2025 10:58 ADDENDUM 10/28/2025 10:58 AFIRMA RESULTS REPORT - Specimen A RESULTS INTERPRETATION: The result of this 1.8 cm [place] III nodule A is Afirma GSC Suspicious which suggests a risk of cancer of approximately 50%. The risk of Malignancy of a GSC Suspicious Afirma XA negative sample remains approximately 50%. Clinical correlation and surgical resection should be considered. AFIRMA RESULTS REPORT - Specimen B RESULTS INTERPRETATION: The result of this 4.5 cm [place] III nodule B is Afirma GSC benign, which suggests a low risk of cancer of approximately 4%. Treatment like a cytologically benign nodule may be appropriate, including clinical correlation. Afirma XA is not performed on GSC Benign nodules. TERT promoter region analysis is not performed on GSC Benign nodules. Please see complete report in e-chart or EMR
== END | disposition home or self-care (01) ==
PROVIDERS: PCP Nurse Practitioner Family; Referring Provider Surgery; Visit Provider Surgery
DX: E05.20 Thyrotoxicosis with toxic multinodular goiter without thyrotoxic crisis or storm (principal); E04.1 Nontoxic single thyroid nodule
CPT/HCPCS: 88108; 88161; 88313

== ENCOUNTER → 2025-10-25 | Outpatient (CLI) | payer BC, SELFPAY ==
[2025-10-25 10:04] LABS: Free T3 3.4 pg/mL (2.18-3.98)
[2025-10-25 10:11] LABS: CRP < 3.00 mg/L (0.0-3.0)
== END | disposition home or self-care (01) ==
LOC: LAB 09:09
PROVIDERS: PCP Nurse Practitioner Family; Referring Provider Internal Medicine Endocrinology, Diabetes & Metabolism; Visit Provider Internal Medicine Endocrinology, Diabetes & Metabolism
DX: E05.90 Thyrotoxicosis, unspecified without thyrotoxic crisis or storm (principal); M25.50 Pain in unspecified joint
CPT/HCPCS: 36415; 84439; 84443; 84481; 85652; 86140